=== PATIENT | male | born 1970 | race Caucasian/White ===

== ENCOUNTER 2016-12-12 07:09 | Emergency (ER) | payer OTHER ==
[~2016-12-12] VITALS: Ht 182.9 cm; Wt 136.1 kg
[2016-12-12 07:10] VITALS: BP 135/91
== END 2016-12-12 07:59 | disposition home or self-care (01) ==
LOC: ED 07:09
DX: H10.31 Unspecified acute conjunctivitis, right eye (principal); R03.0 Elevated blood-pressure reading, without diagnosis of hypertension